=== PATIENT | male | born 1955 | race Caucasian/White ===

== ENCOUNTER 2020-09-28 02:19 | Inpatient (IN) ==
[2020-09-28] MEDS ORDERED: OPTIRAY 320 125ml IV ONE (02:31)
--- NOTE | 2020-09-28 02:40 | Emergency Department Note ---
Impression & Plan Weakness on right side of face, Right arm weakness, Slurred speech, Hypomagnesemia ED Provider Note Name: SUSAN BARILLAS Age: 65 Sex: M Arrives Via: Ambulance Informant: EMS, , EPIC Chart ED Provider: Leon Campo MD Chief Complaint: Weakness Impression: Weakness of right side of face Right Arm Weakness Slurred Speech Hypomagnesemia Medical Decision Makin yr old male arrives as stroke alert due to right sided weakness reported by EMS without known history at this facility prior to arrival. 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 Was admitted [facility] on 09/06 with right arm weakness/facial droop for stroke evaluation, developed status epilepticus and transferred [facility] for management. While at [facility] started on keppra, dilantin, as well as IV Solumedrol for possibly autoimmune encephalitis. Transferred to rehab on the Aug and was apparently awake, talking and walking without issue other than some loose stools. Last seen normal 7pm on 09/27 and then found to have acute right arm/face weakness with slurred speech around 1:30am and transferred to [place] ED arriving 2:19am. CT head with concern acute stroke, though patient is not TPA candidate and CTA head negative for acute occlusion. [facility] Neuro was briefly consulted though agreed not TPA candidate. Patient was quite anxious I believe due to difficult speaking and given IV ativan to help with this. Does not appear to be seizure at this time given patient clearly is awake and interacting. Ativan helped calm him down but still with weakness and facial droop. Hospitalist consulted as will need further work-up and management. Hypomag treatment begun in ED as well. Already on thiamine for ETOH history. I did discuss case with (Abena) who has not actually seen him since he was admitted to [facility] on 09/06 though she does confirm he was talking earlier in day without difficulty. Of note, given diarrhea at [facility] a stool cdiff was sent which initially returned positive pcr thus placed on contact precautions. He can not pass swallow study at this time thus held off on oral abx at this time while awaiting confirmatory testing. Prior Medical Record and Triage/Nursing Notes reviewed by Me Additional history obtained from EMS, , EPIC Charge Differentials:Infection, dehydration, metabolic abnormality, hypo/hyperglycemia, electrolyte disturbance, anemia, hypoxia, cardiac sources, intracerebral event, toxicologic, neurologic, as well as other pathologies. Vital Signs: reviewed and remarkable for HTN Interventions: saline lock, magnesium IV, ativan IV Labs:Reviewed and remarkable for hypomag, low dilantin level Imaging: [facility] Radiologist interpretation reviewed by me: "CT HEAD: No acute intracranial hemorrhage. Subtle transcortical hypoattenuation in left parietal-occipital region medially (images 15-20 with stroke windowing), suspicious for acute infarct in the appropriate clinical setting. Suggest fur ther evaluation with MRI as clinically feasible. Chronic lacunar infarcts in basal ganglia. Confluent white matter hypodensities, which are nonspecific but most likely related to chronic small vessel ischemic changes. Moderate cerebral volume loss. Ventriculomegaly is commensurate with volume loss. Minimal opacification of the right anterior ethmoid air cell. Radiologist: Leon Osei MD CTA HEAD: No evidence of vessel occlusion or significant stenosis. 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 Mural calcifications of cavernous and supraclinoid internal carotid arteries and vertebral arteries. Radiologist: Leon Osei MD CTA NECK: No evidence of vessel occlusion or dissection. Mural calcifications at bilateral distal common carotid arteries and proximal internal carotid arteries with less than 50% resulting stenosis. Emphysema. Degenerative changes of cervical spine. Several lucencies within the cervical spine, measuring up to 8.6 mm in C4 vertebral body, nonspecific. Radiologist: Leon Osei MD" EKG:Per My Interpretation: Indication Stroke: NSR 100 bpm, qtc 446. No Ectopy. No Ischemia. Poor baseline, no previous for comparison Cardiac/Tele Monitoring: Cardiac Monitoring: An Order was placed for continuous cardiac monitoring. The monitor shows a rate of 90 with a normal sinus rhythm. Consults:Dr Shreya Vásquez Neuro Dr Erendira Lee Hospitalist Plan: Disposition:Hospitalization. Condition: Fair History of Present Illness:65 yr old male arrives for right sided weakness by EMS from local rehab facility. Apparently walking, talking and no distress earlier in day, last seen at 7pm normal. Patient with extensive history per report in chart of previous hemorrhagic CVA as well as recent stroke, status epilepticus and possible autoimmune encephalitis. He also has been having diarrhea the last day per report. Patient unable to give ROS as his speech is too garbled, but he shanon being in pain. ROS: Unable to obtain due to patient condition with unintelligible speech Past Medical History:per record: hemorrhagic CVA,chf, htn, renal ca, alcoholism, autoimmune encephalitis, epilepsy Past Surgical History:Unknown as unable to obtain due to patient condition with unintelligible speech Family History:Unable to obtain due to patient condition with unintelligible speech Social History:From [facility], , previous smoker, alcoholic Home Medications:See Below Allergies:NKDA Vitals:Blood Pressure: 171/88, Pulse 94, RR 18, T 37C, O2 95% on RA Physical Exam: GENERAL: Patient is anxious appearing and in mild distress. Aphasic/garbled speech FACE: Right lower facial droop EYES: No scleral icterus, unremarkable pupils. ENT: Mucous membranes moist, no nasal congestion. NECK: No masses appreciated, nomeningismus, trachea is midline. RESPIRATORY: No dyspnea. Clear to auscultation and equal bilaterally. No wheeze, no rhonchi. CARDIOVASCULAR: Regular rate and rhythm.No murmurs, rubs, gallops appreciated. GASTROINTESTINAL: Abdomen soft, non-tender, no peritonitis.Bowel sounds positive.No masses appreciated. BACK: No midline tenderness, no CVA tenderness EXTREMITIES: Normal motion all extremities, no cyanosis, no edema. NEUROLOGIC: Awake, unable to speech, garbled speech, right arm weakness with ataxia though moving it against gravity, wiggles toes to command, doesn't lift either leg to command, moves left arm without difficulty, right lower facial droop, unable to get sensory exam SKIN: No rash, no jaundice, no diaphoresis. PSYCH: Appears quite anxious ED Course: Times/Reassessments: Many evaluations with frequent bedside management 2:19am: Arrival, meet patient on arrival with EMS, taken to CT 2:27am: CT completed and Neuro Paged 2:31am: EPIC chart d/c summary received 2:35am: Stroke Neuro Thalia returned call 2:40am: Decision with Neuro - not TPA candidate, will hold off on Stroke cart eval 2:43am: Reviewed with over phone 2:54am: Discussed findings of CT with [facility] Critical Care: I have personally spent 45 minutes of critical care time in the direct management of this patient. Acute right weakness consistent with stroke and stroke alert activated with consideration for TPA. This was a life/limb threatening event. This 45 minutes is in excess of all separately billable procedures. Leon Campo MD Past Med/Surg History Social History Smoking Status: Never smoker Preferred Language: Japanese Allergies Allergies Allergy/AdvReac Type Severity Reaction Status Date / Time No Known Allergies Allergy Unverified 09/28/20 02:53 Home Meds Home Medications Medication Instructions Recorded Confirmed aspirin [Aspirin Childrens] 81 mg PO DAILY 09/28/20 09/28/20 atorvastatin 40 mg PO HS 09/28/20 09/28/20 carvedilol 3.125 mg PO BID 09/28/20 09/28/20 escitalopram oxalate [Lexapro] 20 mg PO QAM 09/28/20 09/28/20 folic acid 1 mg PO DAILY 09/28/20 09/28/20 levetiracetam 2,000 mg PO BID 09/28/20 09/28/20 lisinopril 5 mg PO BID 09/28/20 09/28/20 magnesium oxide 400 mg PO QAM 09/28/20 09/28/20 multivitamin with minerals 1 tab PO DAILY 09/28/20 09/28/20 [Multiple Vitamin-Minerals] omeprazole 20 mg PO QAM 09/28/20 09/28/20 phenytoin 4 ml PO TID 09/28/20 09/28/20 quetiapine [Seroquel] 25 mg PO HS 09/28/20 09/28/20 thiamine HCl (vitamin B1) 100 mg PO DAILY 09/28/20 09/28/20 Results & Data (ED) Vital Signs Vital Signs - 24 hr 09/28/20 02:33 09/28/20 02:35 09/28/20 02:37 Temperature 37 C Temperature Source Oral Pulse Rate 96 H 104 H 97 H Pulse Rate from SpO2 Sensor 96 H 101 H Respiratory Rate 18 16 18 Respiratory Effort / Characteristics Non-Labored Spontaneous Respiratory Depth Normal Respiratory Pattern Regular Blood Pressure 169/89 H 169/89 H Blood Pressure Mean 115 115 Pulse Oximetry 94 94 90 Oxygen Delivery Method Room Air Sepsis Recent Fever Within 48 Hours No Sepsis New/Unexplained Change in Mental Status No Sepsis Action Taken by Nursing No Action Required 09/28/20 02:40 09/28/20 02:45 09/28/20 02:50 Temperature Temperature Source Pulse Rate 99 H 95 H 92 H Pulse Rate from SpO2 Sensor 98 H 98 H 93 H Respiratory Rate 25 H 21 21 Respiratory Effort / Characteristics Respiratory Depth Respiratory Pattern Blood Pressure Blood Pressure Mean Pulse Oximetry 90 95 94 Oxygen Delivery Method Sepsis Recent Fever Within 48 Hours Sepsis New/Unexplained Change in Mental Status Sepsis Action Taken by Nursing 09/28/20 02:52 09/28/20 02:53 09/28/20 03:01 Temperature Temperature Source Pulse Rate 94 H 92 H 91 H Pulse Rate from SpO2 Sensor 96 H 92 H 90 Respiratory Rate 18 12 18 Respiratory Effort / Characteristics Respiratory Depth Respiratory Pattern Blood Pressure 171/88 H 171/88 H 164/96 H Blood Pressure Mean 115 115 118 Pulse Oximetry 95 93 97 Oxygen Delivery Method Room Air Sepsis Recent Fever Within 48 Hours Sepsis New/Unexplained Change in Mental Status Sepsis Action Taken by Nursing Laboratory Data Result diagrams: 09/28/20 02:36 09/28/20 02:36 Lab Results 09/28/20 09/28/20 09/28/20 Range/Units 02:36 02:36 02:36 WBC 9.43 (4.8-10.8) K/uL RBC 2.52 L (4.7-6.1) M/uL Hgb 9.3 L (14.0-18.0) g/dL Hct 28.4 L (42-52) % MCV 112.7 H (80-100) fL MCH 36.9 H (25-34) pg MCHC 32.7 (32-36) g/dL RDW Std Deviation 56.9 H (36.4-46.3) fL RDW Coeff of Bryn 13.9 (11.5-14.5) % Plt Count 289 (130-400) K/uL MPV 11.0 H (7.4-10.4) fL Immature Gran % (Auto) 0.2 % Neut % (Auto) 57.3 % Lymph % (Auto) 31.1 % [place]one % (Auto) 7.2 % Eos % (Auto) 3.5 % Baso % (Auto) 0.7 % Neut # (Auto) 5.40 (1.4-6.5) K/uL Lymph # (Auto) 2.93 (1.2-3.4) K/uL Boone # (Auto) 0.68 H (0.11-0.59) K/uL Eos # (Auto) 0.33 (0-0.5) K/uL Baso # (Auto) 0.07 (0-0.2) K/uL Immature Gran # (Auto) 0.02 (0.00-0.02) K/uL Macrocytosis Present PT 11.2 (9.0-12.0) Seconds INR 1.1 (0.9-1.1) APTT 23.8 (21.0-31.0) Seconds PTT Ratio 0.9 Sodium (136-145) mmol/L Potassium (3.5-5.1) mmol/L Chloride (98-107) mmol/L Carbon Dioxide (21-32) mmol/L Anion Gap (3-11) BUN (7-18) mg/dl Creatinine (0.6-1.4) mg/dl Est Cr Clr Drug Dosing ml/min Est GFR ( Amer) Est GFR (Non-Af Amer) BUN/Creatinine Ratio (10-20) Glucose (70-99) mg/dl Calcium (8.5-10.1) mg/dl Magnesium (1.8-2.4) mg/dl Total Bilirubin (0.2-1) mg/dl AST (15-37) U/L ALT (12-78) U/L Alkaline Phosphatase (45-117) U/L Troponin I (0-0.045) ng/ml Total Protein (6.4-8.2) gm/dl Albumin (3.4-5.0) gm/dl Globulin (2.5-4.0) gm/dl Albumin/Globulin Ratio (0.9-2) TSH (0.300-4.500) uIu/ml Stl C. diff Tox B Gene (Neg) Stl C.difficile Tox A&B (Negative) Phenytoin (10-20) mcg/ml COVID-19 Eval Order SARS-CoV-2, RNA, NAAT (NEGATIVE) Blood Type O Positive Antibody Screen NEGATIVE 09/28/20 09/28/20 09/28/20 Range/Units 02:36 02:40 02:40 WBC (4.8-10.8) K/uL RBC (4.7-6.1) M/uL Hgb (14.0-18.0) g/dL Hct (42-52) % MCV (80-100) fL MCH (25-34) pg MCHC (32-36) g/dL RDW Std Deviation (36.4-46.3) fL RDW Coeff of Bryn (11.5-14.5) % Plt Count (130-400) K/uL MPV (7.4-10.4) fL Immature Gran % (Auto) % Neut % (Auto) % Lymph % (Auto) % [place] % (Auto) % Eos % (Auto) % Baso % (Auto) % Neut # (Auto) (1.4-6.5) K/uL Lymph # (Auto) (1.2-3.4) K/uL Boone # (Auto) (0.11-0.59) K/uL Eos # (Auto) (0-0.5) K/uL Baso # (Auto) (0-0.2) K/uL Immature Gran # (Auto) (0.00-0.02) K/uL Macrocytosis PT (9.0-12.0) Seconds INR (0.9-1.1) APTT (21.0-31.0) Seconds PTT Ratio Sodium 137 (136-145) mmol/L Potassium 3.8 (3.5-5.1) mmol/L Chloride 104 (98-107) mmol/L Carbon Dioxide 27 (21-32) mmol/L Anion Gap 6.0 (3-11) BUN 11 (7-18) mg/dl Creatinine 0.92 (0.6-1.4) mg/dl Est Cr Clr Drug Dosing 71.3 ml/min Est GFR ( Amer) 100.1 Est GFR (Non-Af Amer) 86.4 BUN/Creatinine Ratio 11.6 (10-20) Glucose 86 (70-99) mg/dl Calcium 7.8 L (8.5-10.1) mg/dl Magnesium 0.9 L* (1.8-2.4) mg/dl Total Bilirubin 0.2 (0.2-1) mg/dl AST 17 (15-37) U/L ALT 28 (12-78) U/L Alkaline Phosphatase 68 (45-117) U/L Troponin I < 0.015 (0-0.045) ng/ml Total Protein 5.6 L (6.4-8.2) gm/dl Albumin 2.6 L (3.4-5.0) gm/dl Globulin 3.0 (2.5-4.0) gm/dl Albumin/Globulin Ratio 0.9 (0.9-2) TSH 2.740 (0.300-4.500) uIu/ml Stl C. diff Tox B Gene Positive Cdiff Gene H (Neg) Stl C.difficile Tox A&B Negative Cdiff Toxin (Negative) Phenytoin (10-20) mcg/ml COVID-19 Eval [facility] SARS-CoV-2, RNA, NAAT (NEGATIVE) Blood Type Antibody Screen 09/28/20 09/28/20 Range/Units 02:40 02:44 WBC (4.8-10.8) K/uL RBC (4.7-6.1) M/uL Hgb (14.0-18.0) g/dL Hct (42-52) % MCV (80-100) fL MCH (25-34) pg MCHC (32-36) g/dL RDW Std Deviation (36.4-46.3) fL RDW Coeff of Bryn (11.5-14.5) % Plt Count (130-400) K/uL MPV (7.4-10.4) fL Immature Gran % (Auto) % Neut % (Auto) % Lymph % (Auto) % [place] % (Auto) % Eos % (Auto) % Baso % (Auto) % Neut # (Auto) (1.4-6.5) K/uL Lymph # (Auto) (1.2-3.4) K/uL [place]one # (Auto) (0.11-0.59) K/uL Eos # (Auto) (0-0.5) K/uL Baso # (Auto) (0-0.2) K/uL Immature Gran # (Auto) (0.00-0.02) K/uL Macrocytosis PT (9.0-12.0) Seconds INR (0.9-1.1) APTT (21.0-31.0) Seconds PTT Ratio Sodium (136-145) mmol/L Potassium (3.5-5.1) mmol/L Chloride (98-107) mmol/L Carbon Dioxide (21-32) mmol/L Anion Gap (3-11) BUN (7-18) mg/dl Creatinine (0.6-1.4) mg/dl Est Cr Clr Drug Dosing ml/min Est GFR ( Amer) Est GFR (Non-Af Amer) BUN/Creatinine Ratio (10-20) Glucose (70-99) mg/dl Calcium (8.5-10.1) mg/dl Magnesium (1.8-2.4) mg/dl Total Bilirubin (0.2-1) mg/dl AST (15-37) U/L ALT (12-78) U/L Alkaline Phosphatase (45-117) U/L Troponin I (0-0.045) ng/ml Total Protein (6.4-8.2) gm/dl Albumin (3.4-5.0) gm/dl Globulin (2.5-4.0) gm/dl Albumin/Globulin Ratio (0.9-2) TSH (0.300-4.500) uIu/ml Stl C. diff Tox B Gene (Neg) Stl C.difficile Tox A&B (Negative) Phenytoin 7.9 L (10-20) mcg/ml COVID-19 Eval Order SARS-CoV-2, RNA, NAAT NEGATIVE (NEGATIVE) Blood Type Antibody Screen Administered Medications Magnesium Sulfate/Dextrose (Magnesium Sulfate / D5w) 1 gm in 100 mls @ 50 mls/hr IV Q2H [facility] Stop: 09/28/20 11:23 Last Admin: 09/28/20 03:56 Dose: 50 mls/hr Documented by: [id number] Discontinued Medications Lorazepam (Ativan) 1 mg in 2 mls @ 2 mls/min IV NOW STA Stop: 09/28/20 02:57 Last Admin: 09/28/20 03:08 Dose: 2 mls/min Documented by: [id number] Magnesium Sulfate/Dextrose (Magnesium Sulfate / D5w) 1 gm in 100 mls @ 100 mls/hr IV NOW STA Stop: 09/28/20 04:29 Last Admin: 09/28/20 03:56 Dose: Not Given Documented by: [id number] Ioversol (Optiray 320 125ml) 119 ml IV ONCE ONE Stop: 09/28/20 02:32 Last Admin: 09/28/20 02:31 Dose: 119 ml Documented by: [id number] Discharge Plan Visit Data Chief Complaint: Stroke/CVA Symptoms Stated Complaint: STROKE SYMPTOMS ED Provider: Leon Campo Discharge Problem: Weakness on right side of face, Right arm weakness, Slurred speech, Hypomagnesemia Patient Disposition: Admitted As Inpatient Discharge Instructions Interventions: ED Discharge Assessment Last Done: 09/28/20 04:45
[2020-09-28 02:46] LABS: Basophils # (auto) 0.07 K/uL (0-0.2); Basophils % (auto) 0.7 %; Eosinophils # (auto) 0.33 K/uL (0-0.5); Eosinophils % (auto) 3.5 %; Hematocrit (blood only) 28.4 % (42-52); Hemoglobin 9.3 g/dL (14.0-18.0); Immature Granulocytes # (auto) 0.02 K/uL (0.00-0.02); Immature Granulocytes % (auto) 0.2 %; Lymphocytes # (auto) 2.93 K/uL (1.2-3.4); Lymphocytes % (auto) 31.1 %; Mean Corpuscular Hemoglobin 36.9 pg (25-34); Mean Corpuscular Hgb Conc 32.7 g/dL (32-36); Mean Corpuscular Volume 112.7 fL (80-100); Monocytes # (auto) 0.68 K/uL (0.11-0.59); Monocytes % (auto) 7.2 %; Neutrophils % (auto) 57.3 %; Platelet Count 289 K/uL (130-400); RDW Coefficient of Variation 13.9 % (11.5-14.5); RDW Standard Deviation 56.9 fL (36.4-46.3); Red Blood Count 2.52 M/uL (4.7-6.1); White Blood Count 9.43 K/uL (4.8-10.8)
[2020-09-28] MEDS ORDERED: LORazepam 1 MG/2 ML VIAL IV STA (02:56)
[2020-09-28 02:57] LABS: INR 1.1 (0.9-1.1); Partial Thromboplastin Ratio 0.9; Partial Thromboplastin Time 23.8 Seconds (21.0-31.0); Prothrombin Time 11.2 Seconds (9.0-12.0)
[2020-09-28 03:04] LABS: Macrocytosis Present
[2020-09-28 03:21] LABS: Alanine Aminotransferase 28 U/L (12-78); Albumin Globulin Ratio 0.9 (0.9-2); Albumin Level 2.6 gm/dl (3.4-5.0); Alkaline Phosphatase 68 U/L (45-117); Aspartate Aminotransferase 17 U/L (15-37); BUN Creatinine Ratio 11.6 (10-20); Bilirubin,Total 0.2 mg/dl (0.2-1); Blood Urea Nitrogen 11 mg/dl (7-18); Calcium 7.8 mg/dl (8.5-10.1); Carbon Dioxide 27 mmol/L (21-32); Chloride 104 mmol/L (98-107); Creatinine Clr Calc Pharmacy 71.3 ml/min; Est GFR (African American) 100.1; Est GFR (Non-African American) 86.4; Glucose 86 mg/dl (70-99); Magnesium 0.9 mg/dl (1.8-2.4); Potassium 3.8 mmol/L (3.5-5.1); Sodium 137 mmol/L (136-145); Total Protein 5.6 gm/dl (6.4-8.2); Troponin I < 0.015 ng/ml (0-0.045)
[2020-09-28] MEDS ORDERED: MAGNESIUM SULFATE / D5W 1 GM/100 ML BAG IV STA (03:30)
--- NOTE | 2020-09-28 03:45 | History & Physical Report ---
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 Aspirin failure Chronic systolic heart failure, patient euvolemic hypertension, elevated secondary to above renal cell carcinoma status post surgery seizure disorder, stable on regimen COPD, no acute lung issues currently chronic anemia, hemoglobin at baseline Diarrhea rule out recurrent C. difficile Hypomagnesemia past tobacco/alcohol use Medical telemetry Neurochecks Plavix for possible aspirin failure MRI brain Neurology consult Re: Recurrent CVA Additional stroke work-up as per neurology Permissive hypertension until recurrent stroke ruled out stool C difficile Replace electrolytes DVT prophylaxis. SCDs RE history hemorrhagic CVA Full code as per , . Abena Kaur. She requests updates from providers through [phone]. Text document was generated using [employer] recognition software. It may contain grammatical or spelling errors. Kindly contact undersigned for clarification of any documentation item in question. History of Present Illness Chief Complaint: Right-sided weakness, aphasia as per records Primary Care Provider: Dr. Lerner History obtained from family and records. Unable to obtain history from patient secondary to aphasia. 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 difficile as per , past tobacco /alcohol use. Last confinement [facility] September 08-2020 for status epilepticus. Patient admitted at [facility] first week of August for suspected TIA, slurred speech and right-sided weakness. MRI showed chronic lacunar infarcts. Intractable seizures noted during confinement prompting intubation and [facility] transfer to facilitate continuous EEG monitoring. EEG showed abundant left lateral periodic discharges. CSF was negative for infection but showed elevated protein. Antibiotic/antiviral medications subsequently discontinued. MRI brain showed hyperintensities left temporal lobe and thalamus, suspicion for limbic encephalitis. 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 Repeat MRI brain (09/20) prior to [facility] discharge showed significant improvement of previously seen abnormal signals and slightly restricted diffusion left mesial temporal lobe and left thalamus. New and more likely progressed signal abnormality cortex and subcortical white matter at the left parieto-occipital fissure with thin subtle cortical enhancement but no convincing restricted diffusion more consistent with post ictal encephalopathy. Patient discharged to [facility] facility 2 days ago. Yesterday, multiple liquid stools noted at rehab facility. Around 1:30 AM, patient noted to be aphasic, have slurred speech, worsening right arm right face weakness as per her account. Stroke alert called upon arrival at the ER. Patient not a TPA candidate as per [facility] teleneurologist. 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 Allergies Allergy/AdvReac Type Severity Reaction Status Date / Time No Known Allergies Allergy Unverified 09/28/20 02:53 Home Medications Medication Instructions Recorded Confirmed Type aspirin [Aspirin Childrens] 81 mg PO DAILY 09/28/20 09/28/20 History atorvastatin 40 mg PO HS 09/28/20 09/28/20 History carvedilol 3.125 mg PO BID 09/28/20 09/28/20 History escitalopram oxalate [Lexapro] 20 mg PO QAM 09/28/20 09/28/20 History folic acid 1 mg PO DAILY 09/28/20 09/28/20 History levetiracetam 2,000 mg PO BID 09/28/20 09/28/20 History lisinopril 5 mg PO BID 09/28/20 09/28/20 History magnesium oxide 400 mg PO QAM 09/28/20 09/28/20 History multivitamin with minerals 1 tab PO DAILY 09/28/20 09/28/20 History [Multiple Vitamin-Minerals] omeprazole 20 mg PO QAM 09/28/20 09/28/20 History phenytoin 4 ml PO TID 09/28/20 09/28/20 History quetiapine [Seroquel] 25 mg PO HS 09/28/20 09/28/20 History thiamine HCl (vitamin B1) 100 mg PO DAILY 09/28/20 09/28/20 History Past Med/Surg History Social History Smoking Status: Never smoker Hx Alcohol Use: No Hx Substance Use: No Preferred Language: Ukrainian Communication Ability: Effective 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: No Beliefs That Will Affect Care: None Current Living Situation: Intermediate Feels Safe at Home: Yes Safety Concerns: Feels Safe At This Time Assistive Devices: None Review of Systems Review of Systems: Could not be reliably obtained Physical Exam Physical Exam: GENERAL: Slightly uncomfortable, aphasic, no respiratory distress SKIN: Pallor , warm HEENT: Pale palpebral conjunctivae, no ptosis, dry buccal mucosa NECK : Supple, no tenderness CHEST : Decreased breath sounds, no tenderness HEART : RRR, no obvious murmurs ABDOMEN: no distention, nontender EXTREMITIES : No LE swelling/tenderness, no other conspicuous deformities noted NEUROLOGIC : Coherent, anisocoria R>L pupil, aphasic, right facial droop, hemiparesis right, LUE contracture, gait and stance not assessed Results & Data Results & Data ([facility]) Vital Signs (Past 12 Hours) Vital Signs Temp Pulse Resp BP Pulse Ox 09/28/20 02:52 94 H 18 171/88 H 95 09/28/20 02:50 92 H 21 94 09/28/20 02:45 95 H 21 95 09/28/20 02:40 99 H 25 H 90 09/28/20 02:37 97 H 18 90 09/28/20 02:35 104 H 16 169/89 H 94 09/28/20 02:33 37 C 96 H 18 169/89 H 94 Laboratory Results Laboratory Results WBC 9.43 K/uL (4.8-10.8) 09/28/20 02:36 RBC 2.52 M/uL (4.7-6.1) L 09/28/20 02:36 Hgb 9.3 g/dL (14.0-18.0) L 09/28/20 02:36 Hct 28.4 % (42-52) L 09/28/20 02:36 MCV 112.7 fL (80-100) H 09/28/20 02:36 MCH 36.9 pg (25-34) H 09/28/20 02:36 MCHC 32.7 g/dL (32-36) 09/28/20 02:36 RDW Std Deviation 56.9 fL (36.4-46.3) H 09/28/20 02:36 RDW Coeff of Bryn 13.9 % (11.5-14.5) 09/28/20 02:36 Plt Count 289 K/uL (130-400) 09/28/20 02:36 MPV 11.0 fL (7.4-10.4) H 09/28/20 02:36 Immature Gran % (Auto) 0.2 % 09/28/20 02:36 Neut % (Auto) 57.3 % 09/28/20 02:36 Lymph % (Auto) 31.1 % 09/28/20 02:36 [place] % (Auto) 7.2 % 09/28/20 02:36 Eos % (Auto) 3.5 % 09/28/20 02:36 Baso % (Auto) 0.7 % 09/28/20 02:36 Neut # (Auto) 5.40 K/uL (1.4-6.5) 09/28/20 02:36 Lymph # (Auto) 2.93 K/uL (1.2-3.4) 09/28/20 02:36 [place] # (Auto) 0.68 K/uL (0.11-0.59) H 09/28/20 02:36 Eos # (Auto) 0.33 K/uL (0-0.5) 09/28/20 02:36 Baso # (Auto) 0.07 K/uL (0-0.2) 09/28/20 02:36 Immature Gran # (Auto) 0.02 K/uL (0.00-0.02) 09/28/20 02:36 Macrocytosis Present 09/28/20 02:36 PT 11.2 Seconds (9.0-12.0) 09/28/20 02:36 INR 1.1 (0.9-1.1) 09/28/20 02:36 APTT 23.8 Seconds (21.0-31.0) 09/28/20 02:36 PTT Ratio 0.9 09/28/20 02:36 Sodium 137 mmol/L (136-145) 09/28/20 02:36 Potassium 3.8 mmol/L (3.5-5.1) 09/28/20 02:36 Chloride 104 mmol/L (98-107) 09/28/20 02:36 Carbon Dioxide 27 mmol/L (21-32) 09/28/20 02:36 Anion Gap 6.0 (3-11) 09/28/20 02:36 BUN 11 mg/dl (7-18) 09/28/20 02:36 Creatinine 0.92 mg/dl (0.6-1.4) 09/28/20 02:36 Est Cr Clr Drug Dosing 71.3 ml/min 09/28/20 02:36 Est GFR ( Amer) 100.1 09/28/20 02:36 Est GFR (Non-Af Amer) 86.4 09/28/20 02:36 BUN/Creatinine Ratio 11.6 (10-20) 09/28/20 02:36 Glucose 86 mg/dl (70-99) 09/28/20 02:36 Calcium 7.8 mg/dl (8.5-10.1) L 09/28/20 02:36 Magnesium 0.9 mg/dl (1.8-2.4) L* 09/28/20 02:36 Total Bilirubin 0.2 mg/dl (0.2-1) 09/28/20 02:36 AST 17 U/L (15-37) 09/28/20 02:36 ALT 28 U/L (12-78) 09/28/20 02:36 Alkaline Phosphatase 68 U/L (45-117) 09/28/20 02:36 Troponin I < 0.015 ng/ml (0-0.045) 09/28/20 02:36 Total Protein 5.6 gm/dl (6.4-8.2) L 09/28/20 02:36 Albumin 2.6 gm/dl (3.4-5.0) L 09/28/20 02:36 Globulin 3.0 gm/dl (2.5-4.0) 09/28/20 02:36 Albumin/Globulin Ratio 0.9 (0.9-2) 09/28/20 02:36 Phenytoin 7.9 mcg/ml (10-20) L 09/28/20 02:44 COVID-19 Eval Order Covid19 [facility]Now [facility] 09/28/20 02:40 SARS-CoV-2, RNA, NAAT NEGATIVE (NEGATIVE) 09/28/20 02:[address] head initial read: No acute intracranial hemorrhage. Subtle transcortical hypoattenuation left parieto-occipital area suspicious for acute infarct in appropriate clinical setting. Suggest further evaluation with MRI. Chronic lacunar infarcts in basal ganglia. Small vessel ischemic changes. Moderate cerebral volume loss. Ventriculomegaly. CT head/neck angio initial read pending EKG as per my interpretation rate 100, NSR, normal axis, T wave abnormality septal leads, low voltage
[2020-09-28] MEDS: MAGNESIUM SULFATE / D5W 1 GM/100 ML BAG IV SCH ×4 (03:56→12:12)
[2020-09-28 04:31] LABS: Cdiff Antigen Negative; Cdiff Toxin A+B Negative Cdiff Toxin (Negative)
[2020-09-28] MEDS ORDERED: LORazepam 0.25 MG/0.5 ML VIAL IV PRN ×2 (04:57)
[2020-09-28] MEDS ORDERED: CLOPIDOGREL BISULFATE 75 MG TAB PO ONE (04:57)
[2020-09-28] MEDS ORDERED: ACETAMINOPHEN 325 MG TAB PO PRN (04:57)
[2020-09-28] MEDS ORDERED: D5NSS + 20MEQ KCL 20 MEQ/1,000 ML BAG IV SCH (05:15)
[2020-09-28] MEDS ORDERED: PHENYTOIN IV STA (05:22)
[2020-09-28] MEDS ORDERED: SODIUM CHLORIDE 0.9% IV STA (05:22)
[2020-09-28] MEDS ORDERED: 0.2 MICRON FILTER SET 1 EA IV STA (05:28)
[2020-09-28] MEDS ORDERED: ASPIRIN 300 MG SUPP PR ONE (05:39)
[2020-09-28] MEDS ORDERED: ACETAMINOPHEN 1,000 MG/100 ML VIAL IV PRN (05:39)
--- NOTE | 2020-09-28 07:00 | CT Scan Report ---
CT head/brain wo con CLINICAL HISTORY: Stroke Like Symptoms COMPARISON STUDY: No previous studies for comparison. TECHNIQUE: Axial CT of the brain is performed from the vertex to the skull base. IV contrast was not administered for this examination. A dose lowering technique was utilized adhering to the principles of ALARA. CT DOSE: 1206.16 mGy.cm FINDINGS: No intra or extra-axial mass lesions are visualized. There is subtle left parieto-occipital hypodensi ty. Acute/subacute infarct cannot be excluded. There is no evidence of midline shift. There is no acu te hemorrhage. No calvarial fractures are visualized. There are patchy white matter hypodensities likely on a small vessel basis. There is mild ventricular dilatation, finding which is felt to be secondary to volume loss. There is no evidence of acute sinusitis IMPRESSION: 1. Age advanced atrophy and white matter disease. 2. Subtle left parieto-occipital hypodensity. An acute/subacute infarct cannot be excluded. An MRI sh ould be obtained in follow-up as deemed clinically appropriate ACT 112: Negative or not required by law. Electronically signed by: Albert Foster M.D. 09/28/2020 6:59 AM
--- NOTE | 2020-09-28 07:23 | CT Scan Report ---
CT angio head w con CLINICAL HISTORY: 65 years-old Male with Stroke Like Symptoms. Acute strokelike symptoms COMPARISON STUDY: Head CT of same day TECHNIQUE: Following the IV administration of 119 cc of Optiray 320, CT angiogram of the brain was pe rformed from the skull base to the vertex. Images are reviewed in the axial, sagittal, and coronal pl anes. 3-D MIPS images are created and assessed. IV contrast was administered without complication. Al l measurements were obtained according to NASCET criteria. A dose lowering technique was utilized adh ering to the principles of ALARA. FINDINGS: Atheromatous plaque of the right petrous segment, bilateral cavernous and supraclinoid segments of th e internal carotid arteries without significant stenosis. There is a 2.6 x 2.2 x 2.0 mm saccular aneu rysm noted involving the medial wall of the supraclinoid left internal carotid artery on image 70 ser ies 5. No evidence of aneurysm rupture. The bilateral middle and anterior cerebral arteries are paten t. Calcified plaque of the distal vertebral arteries without high-grade stenosis. The basilar artery is patent. There is mild multifocal luminal narrowing of the posterior cerebral arteries. No dissecti on, high-grade stenosis or proximal branch occlusion. Cerebral venous sinuses are patent. Ill-defined hypodensities of the left parieto-occipital distribution. No abnormal enhancement. IMPRESSION: 1. 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 2. No dissection, high-grade stenosis or proximal branch occlusion. ACT 112: Negative or not required by law. The above report was generated using voice recognition software. It may contain grammatical, syntax o r spelling errors. Electronically signed by: Arnel Fowler M.D. 09/28/2020 7:22 AM
--- NOTE | 2020-09-28 07:36 | CT Scan Report ---
CT angio neck with con CLINICAL HISTORY: Stroke Like Symptoms WEAKNESS, DIFFICULTY SPEAKING. FACIAL DROOP COMPARISON STUDY: No previous studies for comparison. TECHNIQUE: CT angiography was performed from the aortic arch to the skull base. MIP imaging was perfo rmed. The patient was scanned in a dynamic helical fashion during intravenous administration of 119 c c of Optiray 320. A dose lowering technique was utilized adhering to the principles of ALARA. CT DOSE: Technique: CT angiogram of the carotid and vertebral arteries was obtained using intravenous contrast and 3-D reconstruction. NASCET criteria was utilized. Findings: There is apical emphysema There is extensive plaque at the right carotid bifurcation. There is a 40% diameter stenosis of the a xial right internal carotid artery. There is no dissection. There is no occlusion. Atheromatous field es are also present within the cavernous carotids without evidence of hemodynamically significant murali nosis. There is extensive calcific plaque at the left carotid bulb and origin. There is a 30% diameter steno sis of the left internal carotid artery origin. There is a 30% diameter stenosis of the proximal left subclavian. There is no evidence of hemodynamic ally significant vertebral artery stenosis. There is moderate calcific plaque involving the distal le ft vertebral artery. Degenerative changes are present within the spine. There are several vertebral body lytic foci the la rgest of which measurers 6 mm and is located at the C4 level IMPRESSION: Moderate atheromatous changes without evidence of hemodynamically significant stenosis. ACT 112: Negative or not required by law. Electronically signed by: Albert Foster M.D. 09/28/2020 7:34 AM
[2020-09-28] MEDS ORDERED: THIAMINE HCL 100 MG TAB PO SCH (09:00)
[2020-09-28] MEDS ORDERED: MAGNESIUM OXIDE 400 MG TAB PO SCH (09:00)
[2020-09-28] MEDS ORDERED: CEROVITE ADV FORMULA TAB PO SCH (09:00)
[2020-09-28] MEDS ORDERED: ESCITALOPRAM OXALATE 20 MG TAB PO SCH (09:00)
[2020-09-28] MEDS ORDERED: FOLIC ACID 1 MG TAB PO SCH (09:00)
[2020-09-28] MEDS ORDERED: ASPIRIN 81 MG CHEW PO SCH (09:00)
[2020-09-28] MEDS ORDERED: levETIRAcetam 500 MG TAB PO SCH (09:00)
[2020-09-28] MEDS ORDERED: PHENYTOIN 100 MG/4 ML UDP PO SCH (09:00)
[2020-09-28] MEDS ORDERED: PANTOprazole 40 MG TAB PO SCH (09:00)
--- NOTE | 2020-09-28 11:55 | Neurology Consultation ---
Date of Consultation September 28, 2020 Assessment & Plan (1) Acute CVA (cerebrovascular accident): 1. MRI brain with and without to evaluated for further stroke or encephalitis 2. CTA head and neck- 2 mm saccular ANR no occlusion 3. TTE- 65-70% EF no ASD 4. PT/OT for discharge needs 5. aspirin 81 mg and plavix 75 mg daily- will need to administer MI (2) Weakness on right side of face: unable to fully assess due to patient cooperation Present on Admission?: Yes (3) Right arm weakness: 1. liberalize blood pressure for now- unclear if this is stroke Present on Admission?: Yes (4) Slurred speech: 1. very difficult to understand - minimal verbal communication Present on Admission?: Yes (5) Seizure disorder as sequela of cerebrovascular accident: 1. continue Keppra 2000 mg q 12 hours watch renal function -IV 2. continue dilantin 100 mg TID - IV 3. repeat dilantin level in am 4. EEG- needs continue monitoring needs excalation of care. Present on Admission?: Yes Supervising Physician Co-Signing Physician Notes Patient was seen and examined this afternoon. Case discussed with Juanita Soliman PA-C and I agree her as noted below. Mr. Kaur is a 65 year old male recently admitted for status epilepticus with recent cVEEG showed left sided PLEDS and focal slowing and MRI brain showing signal changes in left mesial temporal area and thalamus. DDx include an autoimmune encephalitis given history of renal cell CA Vs alcohol withdrawl. He is on Dilantin and Keppra. Admitted to [facility] last night for encephalopathy. CT head shows possible lucency on the left posterior horn of the lateral ventricle. Admitted from the ED for possible CVA work up. On examine patient is markedly encephalopathic. He is at times staring off and non responsive. Having similar right sided twitching both in the right foot and right side of his face/ neck. His speech is incomprehensible and he is not following commands. He does track me in the room to the left. He has no gaze deviation. Right arm is flaccid and falls to the bed. Squeeze hand with left. Right foot is twitching. - Recommend transfer as clinical examine (encephalopathy, staring off, right sided twitching) is concerning for subclinical status and will require cVEEG. Case discussed with Dr. Nancy Padilla MD History of Present Illness Reason for Consultation: CVA Requesting Physician: Nancy Padilla MD Attending Physician: Nancy Padilla MD History of Present Illness Delfino is a 65 year old male with a PMH lacunar strokes, hemorrhagic CVA (01/2020), COPD, chronic systolic heart failure (EF 45 to 49%, TTE 2020), HTN, renal cell carcinoma status post surgery, seizure disorder, mood disorder, chronic anemia (baseline hemoglobin 9), history C. difficile. He was transferred from [facility] to [facility] September 08-2020 for status epilepticus. He was admitted at [facility] first week of August for suspected TIA, slurred speech and right-sided weakness. MRI showed chronic lacunar infarcts. He had intractable seizures during the admission and he was intubation and [facility] transfer to facilitate continuous EEG monitoring. EEG showed abundant left lateral periodic discharges. CSF was negative for infection but showed elevated protein. MRI brain showed hyperintensities left temporal lobe and thalamus, suspicion for limbic encephalitis. 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 The MRI brain was repeated (09/20) prior to [facility] discharge showed significant improvement of previously seen abnormal signals and slightly restricted diffusion left mesial temporal lobe and left thalamus. He had a history of EtOH and tobacco use in the past. Today he is notably confused and minimally verbal. He is intermittently following commands. +right sided weakness, neglect Allergies Allergy/AdvReac Type Severity Reaction Status Date / Time No Known Allergies Allergy Unverified 09/28/20 02:53 Home Medications Medication Instructions Recorded Confirmed Type aspirin [Aspirin Childrens] 81 mg PO DAILY 09/28/20 09/28/20 History atorvastatin 40 mg PO HS 09/28/20 09/28/20 History carvedilol 3.125 mg PO BID 09/28/20 09/28/20 History escitalopram oxalate [Lexapro] 20 mg PO QAM 09/28/20 09/28/20 History folic acid 1 mg PO DAILY 09/28/20 09/28/20 History levetiracetam 2,000 mg PO BID 09/28/20 09/28/20 History lisinopril 5 mg PO BID 09/28/20 09/28/20 History magnesium oxide 400 mg PO QAM 09/28/20 09/28/20 History multivitamin with minerals 1 tab PO DAILY 09/28/20 09/28/20 History [Multiple Vitamin-Minerals] omeprazole 20 mg PO QAM 09/28/20 09/28/20 History phenytoin 4 ml PO TID 09/28/20 09/28/20 History quetiapine [Seroquel] 25 mg PO HS 09/28/20 09/28/20 History thiamine HCl (vitamin B1) 100 mg PO DAILY 09/28/20 09/28/20 History Patient History Social History Smoking Status: Never smoker Hx Alcohol Use: No Hx Substance Use: No Preferred Language: Lithuanian Communication Ability: Effective Union Organizer Required: No Beliefs That Will Affect Care: None Current Living Situation: [facility] Feels Safe at Home: Yes Safety Concerns: Feels Safe At This Time Assistive Devices: None Review of Systems Review of Systems: All systems reviewed & are unremarkable except as noted in HPI & below Physical Exam Physical Exam: Physical Exam: Constitutional : appearance thin pale Ears, Nose, Mouth and Throat: mucous membranes moist, no injection and skin normal, eyes normal Cardiovascular: normal S-1 and S-2 and regular rate and rhythm Respiratory: course breath sounds Musculoskeletal: no peripheral edema and good distal pulses Skin: no stigmata of neurocutaneous disease noted and normal and intact Eyes: does not follow command with eye movement NEUROLOGIC EXAMINATION: Mental status: Alert and interactive Oriented to person Speech aphasic Cranial Nerves unable to fully assess flattening of nasolabial fold will not lift eye brows or smile with command Reflexes: Deep tendon reflexes were symmetrical and graded 2/5. down going toes Sensory: unable to assess Coordination: unable to assess Gait/Stance: Posture lying in bed Motor: moves left arm Strength: squeezes with left no with right and wont look at right side. lift left leg against gravity not right Results & Data ([facility]) Vital Signs (Past 12 Hours) Vital Signs Temp Pulse Pulse Resp BP BP Pulse Ox 09/28/20 08:16 36.8 C 109 H 18 156/88 H 94 09/28/20 07:30 96 H 09/28/20 04:00 36.4 C L 90 18 180/101 H 97 09/28/20 03:56 90 15 179/101 H 96 09/28/20 03:01 91 H 18 164/96 H 97 09/28/20 02:53 92 H 12 171/88 H 93 09/28/20 02:52 94 H 18 171/88 H 95 09/28/20 02:50 92 H 21 94 09/28/20 02:45 95 H 21 95 09/28/20 02:40 99 H 25 H 90 09/28/20 02:37 97 H 18 90 09/28/20 02:35 104 H 16 169/89 H 94 09/28/20 02:33 37 C 96 H 18 169/89 H 94 Laboratory Results Abnormal lab results 09/28/20 09/28/20 09/28/20 Range/Units 02:36 02:36 02:40 RBC 2.52 L (4.7-6.1) M/uL Hgb 9.3 L (14.0-18.0) g/dL Hct 28.4 L (42-52) % MCV 112.7 H (80-100) fL MCH 36.9 H (25-34) pg RDW Std Deviation 56.9 H (36.4-46.3) fL MPV 11.0 H (7.4-10.4) fL [place] # (Auto) 0.68 H (0.11-0.59) K/uL Calcium 7.8 L (8.5-10.1) mg/dl Magnesium 0.9 L* (1.8-2.4) mg/dl Total Protein 5.6 L (6.4-8.2) gm/dl Albumin 2.6 L (3.4-5.0) gm/dl Stl C. diff Tox B Gene Positive Cdiff Gene H (Neg) Phenytoin (10-20) mcg/ml 09/28/20 Range/Units 02:44 RBC (4.7-6.1) M/uL Hgb (14.0-18.0) g/dL Hct (42-52) % MCV (80-100) fL MCH (25-34) pg RDW Std Deviation (36.4-46.3) fL MPV (7.4-10.4) fL [place] # (Auto) (0.11-0.59) K/uL Calcium (8.5-10.1) mg/dl Magnesium (1.8-2.4) mg/dl Total Protein (6.4-8.2) gm/dl Albumin (3.4-5.0) gm/dl Stl C. diff Tox B Gene (Neg) Phenytoin 7.9 L (10-20) mcg/ml Diagnostic Findings CT head-Age advanced atrophy and white matter disease. Subtle left parieto- occipital hypodensity. An acute/subacute infarct cannot be excluded. 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 No dissection, high-grade stenosis or proximal branch occlusion. CTA nec- no significant stenosis TTE 65-70% EF, no ASD
--- NOTE | 2020-09-28 13:12 | Hospitalist Progress Note ---
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 Aspirin failure Chronic systolic heart failure, patient euvolemic hypertension, elevated secondary to above renal cell carcinoma status post surgery seizure disorder, stable on regimen COPD, no acute lung issues currently chronic anemia, hemoglobin at baseline Diarrhea rule out recurrent C. difficile Hypomagnesemia past tobacco/alcohol use Medical telemetry Neurochecks Plavix for possible aspirin failure MRI brain Neurology consult Re: Recurrent CVA Additional stroke work-up as per neurology Permissive hypertension until recurrent stroke ruled out stool C difficile Replace electrolytes DVT prophylaxis. SCDs RE history hemorrhagic CVA Full code as per , . Abena Kaur. She requests updates from providers through [phone]. Admission and Anticipated Discharge Date Admission Date: September 28, 2020 Review of Systems Review of Systems: Unobtainable due to mental health condition Results & Data Results & Data ([facility]) Vital Signs (Past 12 Hours) Vital Signs Temp Pulse Pulse Resp BP BP Pulse Ox 09/28/20 08:16 36.8 C 109 H 18 156/88 H 94 09/28/20 07:30 96 H 09/28/20 04:00 36.4 C L 90 18 180/101 H 97 09/28/20 03:56 90 15 179/101 H 96 09/28/20 03:01 91 H 18 164/96 H 97 09/28/20 02:53 92 H 12 171/88 H 93 09/28/20 02:52 94 H 18 171/88 H 95 09/28/20 02:50 92 H 21 94 09/28/20 02:45 95 H 21 95 09/28/20 02:40 99 H 25 H 90 09/28/20 02:37 97 H 18 90 09/28/20 02:35 104 H 16 169/89 H 94 09/28/20 02:33 37 C 96 H 18 169/89 H 94
[2020-09-28] MEDS ORDERED: SODIUM CHLORIDE 0.9% 10ML FLUSH IV SCH (14:00)
[2020-09-28] MEDS ORDERED: PHENYTOIN 100 MG in SYRINGE 0 ML IV SCH (14:00)
--- NOTE | 2020-09-28 14:13 | Electrocardiogram Report ---
Test Reason : Blood Pressure : / mmHG Vent. Rate : 100 BPM Atrial Rate : 100 BPM P-R Int : 176 ms QRS Dur : 054 ms QT Int : 346 ms P-R-T Axes : 021 008 050 degrees QTc Int : 446 ms Poor data quality, interpretation may be adversely affected Normal sinus rhythm Anteroseptal infarct , age undetermined Abnormal ECG No previous ECGs available Confirmed by Abel Duarte ([id number]) on 09/28/2020 2:12:46 PM Referred By: Mariah Dukes Confirmed By:Abel Duarte
--- NOTE | 2020-09-28 16:40 | Discharge Summary ---
Date of Service September 28, 2020 Admission HPI Per Admitting Provider History obtained from family and records. Unable to obtain history from patient secondary to aphasia. 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 difficile as per , past tobacco/alcohol use. Last confinement [facility] September 08-2020 for status epilepticus. Patient admitted at [facility] first week of August for suspected TIA, slurred speech and right-sided weakness. MRI showed chronic lacunar infarcts. Intractable seizures noted during confinement prompting intubation and [facility] transfer to facilitate continuous EEG monitoring. EEG showed abundant left lateral periodic discharges. CSF was negative for infection but showed elevated protein. Antibiotic/antiviral medications subsequently discontinued. MRI brain showed hyperintensities left temporal lobe and thalamus, suspicion for limbic encephalitis. 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 Repeat MRI brain (09/20) prior to [facility] discharge showed significant improvement of previously seen abnormal signals and slightly restricted diffusion left mesial temporal lobe and left thalamus. New and more likely progressed signal abnormality cortex and subcortical white matter at the left parieto-occipital fissure with thin subtle cortical enhancement but no convincing restricted diffusion more consistent with post ictal encephalopathy. Patient discharged to [facility] rehab facility 2 days ago. Yesterday, multiple liquid stools noted at rehab facility. Around 1:30 AM, patient noted to be aphasic, have slurred speech, worsening right arm right face weakness as per her account. Stroke alert called upon arrival at the ER. Patient not a TPA candidate as per [facility] teleneurologist. 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 Admission Exam Per Admitting Provider GENERAL: Slightly uncomfortable, aphasic, no respiratory distress SKIN: Pallor , warm HEENT: Pale palpebral conjunctivae, no ptosis, dry buccal mucosa NECK : Supple, no tenderness CHEST : Decreased breath sounds, no tenderness HEART : RRR, no obvious murmurs ABDOMEN: no distention, nontender EXTREMITIES : No LE swelling/tenderness, no other conspicuous deformities noted NEUROLOGIC : Coherent, anisocoria R>L pupil, aphasic, right facial droop, hemiparesis right, LUE contracture, gait and stance not assessed Principal Diagnosis Altered mental status Discharge Exam General: Awake HENT: NCAT, MMM, EOMI Eyes: PERRLA Neck: Supple, normal range of motion CVS: normal rate and rhythm Resp: b/l breath sounds Abdomen: Soft, nondistended Extremities: Since of any edema Neuro: Right upper extremity/right lower extremity weakness appreciated, will to move all 4 extremities, unable to fully assess logical exam given his current mental status Skin: no rashes/lesions/errythema MSK: no joint swelling/erythema Discharge Data Allergies Allergy/AdvReac Type Severity Reaction Status Date / Time No Known Allergies Allergy Unverified 09/28/20 02:53 Consultations 09/28/20 03:27 ED Decision to Admit Stat 09/28/20 04:57 Consult Case Management - Discharge Planning Routine Consult Neurology Routine 09/28/20 16:14 Burn CD for patient Stat Ordered Studies 09/28/20 02:19 CT angio head w con Urgent CT angio neck with con Urgent CT head/brain wo con Urgent 09/28/20 15:06 MR brain wo/w con Stat Hospital Course (1) Acute CVA (cerebrovascular accident): Recurrent CVA presenting as new onset aphasia History lacunar infarcts History 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 difficile Hypomagnesemia past tobacco/alcohol use Patient is 65-year-old male with past medical history of hemorrhagic stroke in January 2020, hypertension, congestive heart failure, renal cancer status post right nephrectomy, and GERD presented to the ED with aphasia and right-sided weakness. Of note patient was recently at [facility] from 09/08-09/25 with status epilepticus and encephalitis. Patient arrived to [facility] with right-sided weakness/slurred speech. CT head was obtained which revealed Subtle left parieto-occipital hypodensity. An acute/subacute infarct cannot be excluded. MRI is pending. Neurology was consulted at [facility]. Neurology team was concerned since patient has a remarkable difference in his recent baseline; patient is nonverbal, twitching episodes, staring and worsening right-sided weakness. Neurology recommended to transfer to [facility] for continuous EEG monitoring Currently patient is on levetiracetam and phenytoin IV. MRI is pending. During my encounter this morning patient was awake and alert, moving all 4 extremities. He was nonverbal, not able to obtain any relevant HPI. Transthoracic was obtained. Of note, he did have recent diarrhea C. difficile was obtained which was also deferred gene but negative for toxin and occasion for treatment at this time. I spoke with neurology service over [place], patient was accepted under neurology service. Total Time Total Time Spent Total Time Spent (In Minutes): 35 Discharge Plan Discharge Items Patient Disposition: Hospice - Medical Facility Reason For Visit: CVA Discharge Diagnosis: Encephalopathy Activity: Resume your previous activity Non-emergency contact: Primary Care Provider Call non-emergency contact if: your symptoms worsen Follow-up/Referrals: Mariah Dukes [Primary Care Provider] - Diet: Regular Addtl Attending Provider Instructions: Patient being transferred to [facility]. Pending Studies at Discharge: No Stand-Alone Forms: My [facility] Skilled Items Patient informed of condition?: Yes DNR: No Discharge Level of Care: Other Communicable Disease: No Discharge Prognosis: Stable Lines: None Urinary Catheter: No Medications and DC Order Prescriptions: Continued atorvastatin 40 mg Tablet 40 mg PO HS RF: 0 aspirin [Aspirin Childrens] 81 mg Tablet,Chewable 81 mg PO DAILY RF: 0 folic acid 1 mg Tablet 1 mg PO DAILY RF: 0 escitalopram oxalate [Lexapro] 20 mg Tablet 20 mg PO QAM RF: 0 omeprazole 20 mg Tablet,Delayed Release (Dr/Ec) 20 mg PO QAM RF: 0 magnesium oxide 400 mg magnesium Tablet 400 mg PO QAM RF: 0 multivitamin with minerals [Multiple Vitamin-Minerals] Tablet 1 tab PO DAILY RF: 0 quetiapine [Seroquel] 25 mg Tablet 25 mg PO HS RF: 0 thiamine HCl (vitamin B1) 100 mg Tablet 100 mg PO DAILY RF: 0 carvedilol 3.125 mg Tablet 3.125 mg PO BID RF: 0 lisinopril 5 mg Tablet 5 mg PO BID RF: 0 levetiracetam 1,000 mg Tablet 2,000 mg PO BID RF: 0 phenytoin 125 mg/5 mL Suspension 4 ml PO TID RF: 0 Admission Data Admit Date/Time: 09/28/20 03:47 Attending Provider: Nancy Padilla Admit Provider: Vinny Krishna Primary Care Provider: Mariah Dukes Other Providers: Vinny Krishna ; Juanita Soliman ; Delfino Longoria ; Juanita Mahmood ; Miles Ba
--- NOTE | 2020-09-28 17:40 | XRay Report ---
BONY ORBITS 2 VIEWS CLINICAL HISTORY: MRI clearance. FINDINGS: AP and crosstable lateral views of the bony orbits are obtained. No prior studies are avail able for comparison at the time of dictation. There is no radiodense/metallic foreign body seen in th e region of the bony orbits. The bony orbits are intact as imaged. The visualized paranasal sinuses a nd the mastoid air cells appear clear. The imaged calvarium appears intact. IMPRESSION: There is no radiodense/metallic foreign body seen in the region of the bony orbits. ACT 112: Negative or not required by law. Electronically signed by: Lewis Little M.D. 09/28/2020 5:39 PM
[2020-09-28] MEDS ORDERED: GADOBUTROL 65ML VIAL IV ONE (18:19)
--- NOTE | 2020-09-28 18:39 | Magnetic Resonance Report ---
MRI OF THE BRAIN COMBO CLINICAL HISTORY: Strokelike symptoms. COMPARISON STUDY: CT of the brain dated 09/28/2020. TECHNIQUE: MRI of the brain was performed utilizing various T1 and T2-weighted sequences in the axial , sagittal, and coronal planes. Contrast-enhanced sequences were acquired following the administratio n of 5 cc of Gadavist. Examination is significantly degraded by motion artifact. FINDINGS: Brain parenchyma: There is age-related involutional change noting moderate to advanced confluent subc ortical and periventricular microangiopathic disease. There is subtle restricted diffusion identified within the left occipital lobe, as well as within the left temporal lobe, the left insular cortex, a nd the left thalamus. There may also minimal abnormal signal within the left frontal lobe. There is a ssociated FLAIR signal abnormality identified in the left occipital lobe. No associated abnormal post contrast enhancement is identified. There is no hemorrhage or mass effect. No enhancing mass lesion i s identified on the postcontrast images. No extra-axial fluid collection is seen. Chronic lacunar in farcts are identified in the thalami. The cerebellar tonsils are normal in configuration. Ventricles, sulci, and cisterns: Prominent secondary to involutional change. Pituitary and sella: Unremarkable. Intracranial vasculature: Normal flow voids are maintained at the skull base. Orbits: The bony orbits are grossly intact. Orbital contents are normal in appearance noting bilatera l ocular lens implants. Sinuses and mastoids: There is mild mucosal thickening in the left maxillary sinus. The remaining par anasal sinuses are clear, as are the mastoid air cells. Calvarium: Unremarkable. Cervical cord: Partially visualized cervical spinal cord is normal in morphology and signal intensity . IMPRESSION: 1. Significantly motion compromised examination. 2. There is restricted diffusion identified in the left occipital lobe with associated FLAIR signal a bnormality. Additionally, there is subtle restricted diffusion identified in the left temporal lobe, left insular cortex, the left thalamus, and possibly left frontal lobe. These findings are nonspecifi c and could represent atypical presentation of acute to subacute ischemia. A nonspecific encephalitis is favored. Clinical correlation will be essential. 3. There is no hemorrhage, mass effect, or abnormal enhancement. ACT 112: Negative or not required by law. Electronically signed by: Lewis Little M.D. 09/28/2020 6:37 PM
[2020-09-28] MEDS ORDERED: ATORVASTATIN 40 MG TAB PO SCH (21:00)
[2020-09-28] MEDS ORDERED: QUEtiapine FUMARATE 25 MG TABLET PO SCH (21:00)
[2020-09-28] MEDS ORDERED: ONDANSETRON INJ 2 MG/ML 2 ML VIAL ONE (23:22)
[2020-09-29] MEDS ORDERED: CLOPIDOGREL BISULFATE 75 MG TAB PO SCH (09:00)
[2020-09-29] MEDS ORDERED: ASPIRIN 81 MG CHEW PO SCH (09:00)
--- NOTE | 2020-10-07 17:58 | Coding Query ---
CODING QUERY To promote full compliance with coding requirements relating to patient care, provider participation is requested in all cases of elevator technician uncertainty. Please assist us with the question(s) below: Coding Question(s): Patient admitted from Rehab facility with stroke symptoms, aphasia. Prior history of lacunar strokes/hemorrhagic CVA. Discharge Summary states CVA and Final DX states "Encephalopathy". Seeking to clarify the diagnosis, after study, to be chiefly responsible for this patient's stay. Thanks for your help! Johnny Oliva [employer] [facility] Physician's Response(s): CVA not ruled out because patient did not get the MRI. Therefore, unable to determine. Principal Diagnosis: "that condition established after study, to be chiefly responsible for occasioning the admission of the patient to the hospital for care." Co-Existing Principal Diagnosis: "when two or more diagnoses equally meet the criteria for principal diagnosis as determined by the circumstances of admission, diagnostic work up, and/or therapy provided, and the Alphabetic Index, Tabular List, or another coding guideline does not provide sequencing direction, any one of the diagnoses may be sequenced first." "When the physician has documented what appears to be a current diagnosis in the body of the record, but has not included the diagnosis in the final diagnostic statement, the physician should be asked whether the diagnosis should be added." (Source Coding [facility] 2 QTR90. p3-4) MALLY
== END 2020-09-28 19:58 | disposition short-term general hospital (02) | DRG 71 ==
LOC: EDBD → ED 02:19 → 2N 03:47